=== PATIENT | male | born 1955 | race Asian ===

== ENCOUNTER 2020-02-18 01:05 | Emergency (ER) | payer OTHER ==
[~2020-02-18] VITALS: Ht 167.6 cm; Wt 56.7 kg
[2020-02-18 01:09] VITALS: Ht 167.6 cm; Wt 56.7 kg
[2020-02-18 02:57] LABS: CALCIUM 9.1 mg/dL (8.5-10.1); CARBON DIOXIDE 22.8 mmol/L (21-32); CHLORIDE SERUM 97 mmol/L (98-107); CREATININE SERUM 1.1 mg/dL (0.7-1.3); GFR1 > 60 mL/min; GLUCOSE SERUM 251 mg/dL (74-106); SODIUM SERUM 131 mmol/L (136-145)
[2020-02-18 03:02] LABS: ALBUMIN 4.1 g/dL (3.4-5.0); ALKALINE PHOSPHATASE 70 U/L (46-116); ALT/SGPT 45 U/L (16-63); AST/SGOT 33 U/L (15-37); BASOPHIL % 2.7 % (0-2); BILIRUBIN TOTAL 0.78 mg/dL (0.20-1.00); LIPASE 577 IU/L (73-393); PLATELET COUNT 323 x10^3mcL (130-400); RED CELL DISTRIBUTION WIDTH 13.5 % (11.5-14.5); TOTAL PROTEIN, SERUM 8.1 g/dL (6.4-8.2)
[2020-02-18 06:26] VITALS: BP 143/82
== END 2020-02-18 06:26 | disposition left against medical advice (07) ==
LOC: ED 01:05
PROVIDERS: Emergency Medicine
DX: I11.0 Hypertensive heart disease with heart failure (principal); I50.9 Heart failure, unspecified; E11.9 Type 2 diabetes mellitus without complications; Z20.828 Contact with and (suspected) exposure to other viral communicable diseases
CPT/HCPCS: 83880; J1940; J3490; Q0092; U0003-CS

== ENCOUNTER 2020-02-29 14:06 | Emergency (ER) | payer OTHER ==
[~2020-02-29] VITALS: Ht 167.6 cm; Wt 59.4 kg
[2020-02-29 14:30] VITALS: Ht 167.6 cm; Wt 59.4 kg
[2020-02-29 16:35] LABS: microscopic required? NO
[2020-02-29 16:40] LABS: BASOPHIL % 0.3 % (0-2); PLATELET COUNT 341 x10^3mcL (130-400)
[2020-02-29 16:46] LABS: UA SPECIFIC GRAVITY <=1.005 (1.005-1.035); urine erythrocyte NEGATIVE (NEGATIVE)
[2020-02-29 16:50] LABS: RED CELL DISTRIBUTION WIDTH 16.6 % (11.5-14.5)
[2020-02-29 16:52] LABS: ALBUMIN 3.4 g/dL (3.4-5.0); ALKALINE PHOSPHATASE 54 U/L (46-116); ALT/SGPT 71 U/L (16-63); AST/SGOT 43 U/L (15-37); BILIRUBIN TOTAL 0.7 mg/dL (0.20-1.00); CALCIUM 8.7 mg/dL (8.5-10.1); CARBON DIOXIDE 25.4 mmol/L (21-32); CHLORIDE SERUM 92 mmol/L (98-107); CHOLESTEROL 77 mg/dL (<200); GFR1 > 60 mL/min; GLUCOSE SERUM 290 mg/dL (74-106); HDL CHOLESTEROL 37 mg/dL (40-60); LIPASE 382 IU/L (73-393); POTASSIUM SERUM 4.4 mmol/L (3.5-5.1); SODIUM SERUM 125 mmol/L (136-145)
[2020-02-29 17:00] LABS: AMPHETAMINE QUAL UR NONE DETECTED (See below)
[2020-02-29 18:29] VITALS: BP 162/95
== END 2020-02-29 18:29 | disposition left against medical advice (07) ==
LOC: ED 14:06
PROVIDERS: Emergency Medicine
DX: J90 Pleural effusion, not elsewhere classified (principal); J18.9 Pneumonia, unspecified organism; R09.02 Hypoxemia; E87.1 Hypo-osmolality and hyponatremia; I11.0 Hypertensive heart disease with heart failure; I50.9 Heart failure, unspecified; E11.9 Type 2 diabetes mellitus without complications
CPT/HCPCS: 36600; 83880; J2930; J3475; Q0092

== ENCOUNTER 2020-04-02 20:08 | Emergency (ER) | payer OTHER ==
[~2020-04-02] VITALS: Ht 167.6 cm; Wt 58.6 kg
[2020-04-02 20:22] VITALS: Ht 167.6 cm; Wt 58.6 kg
[2020-04-02 21:25] LABS: BASOPHIL % 0.5 % (0-2); PLATELET COUNT 323 x10^3mcL (130-400); RED CELL DISTRIBUTION WIDTH 15.6 % (11.5-14.5)
[2020-04-02 21:32] LABS: ALKALINE PHOSPHATASE 63 U/L (46-116); ALT/SGPT 52 U/L (16-63); AST/SGOT 26 U/L (15-37); BILIRUBIN TOTAL 0.6 mg/dL (0.20-1.00); CALCIUM 9.1 mg/dL (8.5-10.1); CARBON DIOXIDE 19.9 mmol/L (21-32); CHLORIDE SERUM 86 mmol/L (98-107); GFR1 > 60 mL/min; GLUCOSE SERUM 225 mg/dL (74-106); TOTAL PROTEIN, SERUM 6.4 g/dL (6.4-8.2)
[2020-04-02 21:38] LABS: SODIUM SERUM 117 mmol/L (136-145)
[2020-04-03 03:01] VITALS: BP 142/89
== END 2020-04-03 03:10 | disposition short-term general hospital (02) ==
LOC: ED 20:08
PROVIDERS: Emergency Medicine
DX: I11.0 Hypertensive heart disease with heart failure (principal); I50.9 Heart failure, unspecified; E11.9 Type 2 diabetes mellitus without complications
CPT/HCPCS: 83880; J1940; Q0092